=== PATIENT | female | born 1990 | race Caucasian/White ===

== ENCOUNTER 2019-03-17 12:29 | Emergency (ER) | payer OTHER ==
[2019-03-17 12:34] VITALS: BP 122/72; PULSE 65; TEMP 97.4; BMI 19.8
--- NOTE | 2019-03-17 13:06 | PDOC ---
History of Present Illness - General Chief Complaint: Sore Throat Stated Complaint: SORE THROAT Time Seen by Provider: 03/17/19 12:41 History Source: Patient Exam Limitations: No Limitations Past History - Past Medical History Allergies/Adverse Reactions: Allergies Allergy/AdvReac Type Severity Reaction Status Date / Time No Known Allergies Allergy Verified 03/17/19 12:33 COPD: No - Suicide/Smoking/Psychosocial Hx Smoking History: Never smoked *Physical Exam - Vital Signs Last Vital Signs Temp Pulse Resp BP Pulse Ox 97.4 F L 65 18 122/72 100 03/17/19 12:30 03/17/19 12:30 03/17/19 12:30 03/17/19 12:30 03/17/19 12:30 - Physical Exam General Appearance: No: Apparent Distress HEENT: positive: Normal Voice, Pharynx Normal. negative: Muffled/Hoarse voice, Pharyngeal Erythema, Tonsillar Exudate, Tonsillar Erythema, Nasal Congestion Neck: positive: Trachea midline, Supple. negative: Tender, Rigid, Lymphadenopathy (R), Lymphadenopathy (L), Rigidity Respiratory/Chest: positive: Lungs Clear, Normal Breath Sounds. negative: Respiratory Distress Cardiovascular: positive: Regular Rhythm, Regular Rate, S1, S2. negative: Murmur Integumentary: positive: Normal Color Neurologic: positive: Alert, Normal Mood/Affect Medical Decision Making - Medical Decision Making 28 y/o F with no sig pmh presents with discomfort/sharp pain along L anterior neck which started around 30 minutes and subsided on its own. Denies fever, cough, sob, cp, abd pain, n/v, dysphagia. PE unremarkable Patient reassured Stable for dc 03/17/19 13:01 *DC/Admit/Observation/Transfer Diagnosis at time of Disposition: Anterior neck pain - Discharge Dispostion Disposition: HOME Condition at time of disposition: Stable Decision to Admit order: No - Referrals - Patient Instructions Additional Instructions: Thank you for choosing [facility]. It was a pleasure taking care of you. Follow-up with your doctor in 2 days Return to the Emergency Department if your symptoms worsen or persist, you have fever, shortness of breath, chest pain, unable to swallow or other concerning symptoms. - Post Discharge Activity
== END 2019-03-17 13:05 | disposition home or self-care (01) ==
LOC: JERFT 12:29
DX: M54.2 Cervicalgia (principal)
CPT/HCPCS: 99281-25